=== PATIENT | female | born 1970 | race Caucasian/White ===

== ENCOUNTER 2018-03-24 09:18 | Emergency (ER) | payer OTHER ==
[~2018-03-24] VITALS: Ht 172.7 cm; Wt 93.9 kg
[2018-03-24 09:26] VITALS: BP 159/99
[2018-03-24 10:25] LABS: INFLUENZA A PATIENT NEGATIVE (NEGATIVE); INFLUENZA B PATIENT NEGATIVE (NEGATIVE)
--- NOTE | 2018-03-24 10:26 | PHYS DOC ---
Past Medical History Past Medical History: No Pertinent History Smoking: Cigarettes, 1 Pack Per Day Alcohol Use: None Drug Use: None Adult General Chief Complaint Chief Complaint: FLU SYMPTOM HPI HPI Patient is a 47-year-old female who presents to the emergency department for evaluation. She states that for the past week, she has had nasal congestion, some occasional fevers, and a cough which is mostly nonproductive. She denies any focal pain, although she has had some intermittent ear pain bilaterally. She denies any chest pain, abdominal pain, nausea, or vomiting. She has been blowing her nose a lot and having a lot of sneezing and sniffling. There are no alleviating or exacerbating factors to the patient's symptoms, except as noted above. Review of Systems Review of Systems Constitutional: Denies lethargy or chills [] Eyes: Denies change in visual acuity, redness, or eye pain [] HENT: Denies sore throat reports cough and nasal congestion.[] Respiratory: Denies pleuritic pain or shortness of breath [] Cardiovascular: The patient denies any shortness of breath, chest pain, palpitations, or orthopnea. GI: Denies abdominal pain, nausea, vomiting, bloody stools or diarrhea [] : Denies dysuria or hematuria [] Musculoskeletal: Denies back pain or joint pain. Denies myalgias. [] Integument: Denies rash or skin lesions [] Neurologic: Denies headache, focal weakness or sensory changes [] Physical Exam Physical Exam PHYSICAL EXAM: CONSTITUTIONAL: Well developed, well nourished HEAD: normocephalic, atraumatic EENT: PERRL, EOMI. Conjunctivae normal color, sclerae non-icteric; moist mucous membranes. Tympanic membranes are normal. There is nasal congestion present. NECK: Supple, non-tender; no meningismus. LUNGS: Lungs CTA, breathing even and unlabored. Normal air movement. HEART: Regular rate and rhythm, no murmur CHEST: No deformity; non-tender ABDOMEN: The abdomen is soft, and non-tender, no masses or bruits. EXTREM: Normal ROM; no deformity, no calf tenderness. Normal pulses palpable in all extremities. There is no pedal edema. SKIN: No rash; no diaphoresis NEURO: Alert; normal speech and cognition; CN's grossly intact; strength grossly intact without focal deficit. BACK: No CVA TTP. Current Patient Data Vital Signs Vital Signs Date Time Temp Pulse Resp B/P (MAP) Pulse Ox O2 Delivery O2 Flow Rate FiO2 03/24/18 09:26 98.0 84 20 159/99 (119) 97 Room Air 98.0 Lab Values Laboratory Tests Test 03/24/18 09:37 Influenza Type A Antigen Negative (NEGATIVE) Influenza Type B Antigen Negative (NEGATIVE) EKG EKG [] Radiology/Procedures Radiology/Procedures [PROCEDURE: CHEST PA & LATERAL CHEST PA LATERAL History: COUGH, CHEST CONGESTION Comparison: November 22, 2007 Findings: 2 views of the chest are submitted. There is no infiltrate, pneumothorax, or effusion. The cardiac silhouette is within normal limits in size. Impression: 1. There is no radiographic evidence of acute cardiopulmonary disease.] Course & Med Decision Making Course & Med Decision Making Pertinent Labs and Imaging studies reviewed. (See chart for details) []Patient remains stable. I discussed test results, the need for close follow-up , and return precautions. Dragon Disclaimer Dragon Disclaimer This electronic medical record was generated, in whole or in part, using a voice recognition dictation system. Departure Departure Impression: Primary Impression: Upper respiratory infection Disposition: ADMITTED INPATIENT Condition: STABLE Referrals: NON,STAFF (PCP) Patient Instructions: Smoking Cessation, Upper Respiratory Infection, Adult ALOAN HOUSE MD Mar 24, 2018 10:26
--- NOTE | 2018-03-24 10:27 | RAD ---
CHEST PA LATERAL History: COUGH, CHEST CONGESTION Comparison: November 22, 2007 Findings: 2 views of the chest are submitted. There is no infiltrate, pneumothorax, or effusion. The cardiac silhouette is within normal limits in size. Impression: 1. There is no radiographic evidence of acute cardiopulmonary disease. Electronically signed by: Remi Sands MD (03/24/2018 10:23 AM) [id number]
[2018-03-24] MEDS ORDERED: BENZ100C PO (10:36)
== END 2018-03-24 10:43 | disposition home or self-care (01) ==
LOC: ER 09:18
DX: J06.9 Acute upper respiratory infection, unspecified (principal); H92.03 Otalgia, bilateral; F17.210 Nicotine dependence, cigarettes, uncomplicated
CPT/HCPCS: 71046; 87804; 99284

== ENCOUNTER 2019-05-20 08:29 | Emergency (ER) | payer BC, OTHER ==
[~2019-05-20] VITALS: Ht 172.7 cm; Wt 93.0 kg
[~2019-05-20 08:29] MED LIST: BENZ100C PO
--- NOTE | 2019-05-20 09:13 | PHYS DOC ---
Past Medical History Past Medical History: No Pertinent History Smoking Status: Current Every Day Smoker Alcohol Use: None Drug Use: None Adult General Chief Complaint Chief Complaint: HEADACHE HPI HPI Patient is a 48 year old female who presents to the ER secondary to a headache. Patient states that she has had intermittent headaches over the past week or so and she went to her doctor's office 2 days ago and her blood pressure was 150s over 100s. Patient states that she has not been on blood pressure me dication for the past 11 years. Her blood pressure is elevated in the emergency department today as well. Last night her headache was 9/10 in today is 5/10. She denies focal neurologic deficits, numbness tingling or weakness. She has no history of headaches otherwise. Review of Systems Review of Systems All other ROS is negative unless otherwise stated in HPI Current Medications Current Medications Current Medications Medications (Trade) Dose Ordered Sig/Dashawn Start Time Stop Time Status Last Admin Dose Admin Clonidine HCl (Catapres) 0.1 mg 1X ONCE 05/20/19 09:15 05/20/19 09:19 DC 05/20/19 09:28 0.1 MG Ketorolac Tromethamine (Toradol Im) 30 mg 1X ONCE 05/20/19 09:15 05/20/19 09:19 DC 05/20/19 09:28 30 MG Allergies Allergies Allergies Coded Allergies Type Severity Reaction Last Updated Verified No Known Drug Allergies 05/20/19 No Physical Exam Physical Exam See above Constitutional: Well developed, well nourished, no acute distress, non-toxic appearance. [] HENT: Normocephalic, atraumatic, bilateral external ears normal, oropharynx moist, no oral exudates, nose normal. [] Eyes: PERRLA, EOMI, conjunctiva normal, no discharge. [] Neck: Normal range of motion, no tenderness, supple, no stridor. [] Cardiovascular:Heart rate regular rhythm, no murmur [] Lungs & Thorax: Bilateral breath sounds clear to auscultation [] Abdomen: Bowel sounds normal, soft, no tenderness, no masses, no pulsatile masses. [] Skin: Warm, dry, no erythema, no rash. [] Back: No tenderness, no CVA tenderness. [] Extremities: No tenderness, no cyanosis, no clubbing, ROM intact, no edema. [] Neurologic: Alert and oriented X 3, normal motor function, normal sensory function, no focal deficits noted. [] Psychologic: Affect normal, judgement normal, mood normal. [] Current Patient Data Vital Signs Vital Signs Date Time Temp Pulse Resp B/P (MAP) Pulse Ox O2 Delivery O2 Flow Rate FiO2 05/20/19 09:28 66 172/79 05/20/19 09:04 98.0 18 98 Room Air 98.0 Lab Values Laboratory Tests Test 05/20/19 09:30 White Blood Count 5.7 x10^3/uL (4.0-11.0) Red Blood Count 4.98 x10^6/uL (3.50-5.40) Hemoglobin 11.7 g/dL (12.0-15.5) L Hematocrit 36.2 % (36.0-47.0) Mean Corpuscular Volume 73 fL (79-100) L Mean Corpuscular Hemoglobin 24 pg (25-35) L Mean Corpuscular Hemoglobin Concent 32 g/dL (31-37) Red Cell Distribution Width 20.4 % (11.5-14.5) H Platelet Count 379 x10^3/uL (140-400) Neutrophils (%) (Auto) 39 % (31-73) Lymphocytes (%) (Auto) 49 % (24-48) H Monocytes (%) (Auto) 7 % (0-9) Eosinophils (%) (Auto) 3 % (0-3) Basophils (%) (Auto) 2 % (0-3) Neutrophils # (Auto) 2.2 x10^3/uL (1.8-7.7) Lymphocytes # (Auto) 2.8 x10^3/uL (1.0-4.8) Monocytes # (Auto) 0.4 x10^3/uL (0.0-1.1) Eosinophils # (Auto) 0.2 x10^3/uL (0.0-0.7) Basophils # (Auto) 0.1 x10^3/uL (0.0-0.2) Platelet Estimate Pending Sodium Level 143 mmol/L (136-145) Potassium Level 4.1 mmol/L (3.5-5.1) Chloride Level 103 mmol/L (98-107) Carbon Dioxide Level 27 mmol/L (21-32) Anion Gap 13 (6-14) Blood Urea Nitrogen 12 mg/dL (7-20) Creatinine 0.8 mg/dL (0.6-1.0) Estimated GFR (Cockcroft-Gault) 75.9 BUN/Creatinine Ratio 15 (6-20) Glucose Level 93 mg/dL (70-99) Calcium Level 8.9 mg/dL (8.5-10.1) Total Bilirubin 0.3 mg/dL (0.2-1.0) Aspartate Amino Transferase (AST) 16 U/L (15-37) Alanine Aminotransferase (ALT) 22 U/L (14-59) Alkaline Phosphatase 79 U/L (46-116) Total Protein 7.5 g/dL (6.4-8.2) Albumin 3.7 g/dL (3.4-5.0) Albumin/Globulin Ratio 1.0 (1.0-1.7) Triglycerides Level 45 mg/dL (0-150) Cholesterol Level 261 mg/dL (0-200) H LDL Cholesterol, Calculated 118 mg/dL (0-100) H VLDL Cholesterol, Calculated 9 mg/dL (0-40) Non-HDL Cholesterol Calculated 127 mg/dL (0-129) HDL Cholesterol 134 mg/dL (40-60) H Cholesterol/HDL Ratio Thyroid Stimulating Hormone (TSH) 3.541 uIU/mL (0.358-3.74) Free Thyroxine 1.03 ng/dL (0.76-1.46) Laboratory Tests 05/20/19 09:30 Laboratory Tests 05/20/19 09:30 EKG EKG [] Radiology/Procedures Radiology/Procedures [] Course & Med Decision Making Course & Med Decision Making Pertinent Labs and Imaging studies reviewed. (See chart for details) 0913: We we will go ahead and treat this patient's blood pressure in the ER with clonidine and I will provide portal for headache. Labs as well 1021: This patient's workup is complete at this time and her laboratory analysis is rather unremarkable. Her blood pressure has improved to 160/84 and her headache has improved as well. At this time the patient will be discharged home and she is instructed to follow-up with her doctor this week to review her labs and also recheck blood pressure as she will likely need antihypertensive medication. Dragon Disclaimer Dragon Disclaimer This electronic medical record was generated, in whole or in part, using a voice recognition dictation system. Departure Departure Impression: Primary Impression: Elevated blood pressure reading Additional Impression: Headache Disposition: ADMITTED INPATIENT Condition: IMPROVED Referrals: ARDEN MCARTHUR (PCP) Follow-up next week to discuss labs and blood pressure Patient Instructions: Managing Your High Blood Pressure Additional Instructions: Push oral fluids; your urine should be light yellow to clear Problem Qualifiers ETHAN KING DO May 20, 2019 09:13
[2019-05-20] MEDS ORDERED: KETOROLAC 60 MG/2 ML VIAL. IM ONE (09:15)
[2019-05-20] MEDS ORDERED: cloNIDine HCL 0.1 MG TABLET PO ONE (09:15)
[2019-05-20 09:38] LABS: BASO # 0.1 x10^3/uL (0.0-0.2); BASO % 2 % (0-3); EOS # 0.2 x10^3/uL (0.0-0.7); EOS % 3 % (0-3); HEMATOCRIT 36.2 % (36.0-47.0); HEMOGLOBIN 11.7 g/dL (12.0-15.5); LYMPH # 2.8 x10^3/uL (1.0-4.8); LYMPH % 49 % (24-48); MEAN CORPUSCULAR HEMOGLOBIN 24 pg (25-35); MEAN CORPUSCULAR HGB CONC 32 g/dL (31-37); MEAN CORPUSCULAR VOLUME 73 fL (79-100); MONO # 0.4 x10^3/uL (0.0-1.1); MONO % 7 % (0-9); NEUT # 2.2 x10^3/uL (1.8-7.7); NEUT % 39 % (31-73); PLATELET COUNT 379 x10^3/uL (140-400); RED BLOOD COUNT 4.98 x10^6/uL (3.50-5.40); RED CELL DISTRIBUTION WIDTH 20.4 % (11.5-14.5); WHITE BLOOD COUNT 5.7 x10^3/uL (4.0-11.0)
[2019-05-20 09:44] LABS: CALCIUM 8.9 mg/dL (8.5-10.1); CREATININE 0.8 mg/dL (0.6-1.0); GFR 75.9; POTASSIUM 4.1 mmol/L (3.5-5.1)
[2019-05-20 09:51] LABS: ALBUMIN 3.7 g/dL (3.4-5.0); TOTAL BILIRUBIN 0.3 mg/dL (0.2-1.0); TOTAL PROTEIN 7.5 g/dL (6.4-8.2)
[2019-05-20 09:57] LABS: FREE T4 1.03 ng/dL (0.76-1.46); THYROID STIM HORMONE (TSH) 3.541 uIU/mL (0.358-3.74)
[2019-05-20 10:37] VITALS: BP 151/84
[2019-05-20 13:45] LABS: % BANDS 2 % (0-9); % BASOS 2 % (0-3); % EOS 1 % (0-5); % LYMPHS 33 % (24-48); % MONOS 6 % (0-10); % SEGS 56 % (35-66); ANISOCYTOSIS MOD; HYPOCHROMIA SLIGHT; PLT ESTIMATE ADEQUATE (ADEQUATE)
== END 2019-05-20 10:47 | disposition other institution (70) ==
LOC: ER 08:29
DX: I10 Essential (primary) hypertension (principal); R51 Headache; F17.200 Nicotine dependence, unspecified, uncomplicated
CPT/HCPCS: 36415; 80053; 80061; 84439; 84443; 85007; 85025; 96372; 99283; J1885

== ENCOUNTER → 2020-04-12 | Outpatient (CLI) | payer BC ==
--- NOTE | 2020-04-12 15:01 | RAD ---
Examination: Bilateral digital diagnostic mammogram. INDICATION: 49-year-old woman due for bilateral mammographic screening presents with exquisite right breast pain radiating to her right axilla. No discharge, skin changes or palpable masses. COMPARISON: Bilateral mammogram of 10/21/2011. TECHNIQUE: CC and MLO views of both breasts were obtained with 2-D technique and reviewed with comput er-aided detection. FINDINGS: The breasts are almost entirely fatty replaced. In both breasts, there is no dominant mass, architectural distortion, suspicious calcifications or sk in, nipple or axillary abnormalities. IMPRESSION: Negative bilateral mammogram. There is no target for ultrasound. BI-RADS Category 1 Negative Recommend clinical management, including management of patient's right breast pain. If there are any clinically suspicious findings, these should be considered for biopsy. In the absence of a clinically suspicious finding, recommend routine screening next due in one year. Discussed with patient. Patient entered into a reminder system with targeted due date for next mammogram. Electronically signed by: Trista Darby MD (04/12/2020 2:59 PM) [id number]
== END ==
LOC: MAMMO 12:50
PROVIDERS: ATTEND Family Medicine
DX: N64.4 Mastodynia (principal); N64.59 Other signs and symptoms in breast
CPT/HCPCS: 77066